=== PATIENT | male | born 1940 | race Caucasian/White ===

== ENCOUNTER 2021-02-28 11:39 | Day surgery (SDC) | payer MEDICARE, BC ==
[~2021-02-28] VITALS: Ht 175.3 cm; Wt 66.5 kg
[2021-02-28] VITALS (7 sets, daily range): BP systolic 108–136; BP diastolic 62–75
[2021-02-28] MEDS ORDERED: normal saline 1000ml 1,000 ML IV SCH (12:05)
[2021-02-28] MEDS ORDERED: ATOR10TA87 PO (12:39)
[2021-02-28] MEDS ORDERED: LISI1TAB51 PO (12:39)
[2021-02-28] MEDS ORDERED: LIDO30CR TOP (12:39)
[2021-02-28 12:41] LABS: BASOPHILS % (AUTO) 0.2 % (0-1); EOSINOPHILS % (AUTO) 0.7 % (0-6); HEMOGLOBIN 12.5 g/dl (14.0-17.9); LYMPHOCYTES # (AUTO) 0.2 X10'3 (1.1-4.8); LYMPHOCYTES % (AUTO) 4.7 % (21-51); MEAN CORPUSCULAR HEMOGLOBIN 32.2 PG (27.0-31.0); MEAN CORPUSCULAR HGB CONC 33.7 g/dL (33.0-36.5); MEAN CORPUSCULAR VOLUME 95.6 FL (78-98); MEAN PLATELET VOLUME 7.3 FL (7.4-10.4); MONOCYTES # (AUTO) 0.3 X10'3 (0-0.9); MONOCYTES % (AUTO) 9.7 % (2-12); NEUTROPHILS # (AUTO) 2.8 X10'3 (1.8-7.7); NEUTROPHILS % (AUTO) 84.7 % (42-75); PLATELET COUNT 107 X10'3 (140-440); RED BLOOD COUNT 3.87 X10'6 (4.70-6.10); RED CELL DISTRIBUTION WIDTH 13.6 % (11.5-14.5); WHITE BLOOD COUNT 3.3 X10'3 (4.5-11.0)
[2021-02-28] MEDS ORDERED: midazolam 1 mg/ML 2ml injection ONE ×2 (12:51→14:42)
[2021-02-28] MEDS ORDERED: glucagon, human recombinant 1mg kit ONE (12:51)
[2021-02-28] MEDS ORDERED: fentaNYL/PF 50MCG/1 ML 2ML syringe ONE ×2 (12:52→14:42)
[2021-02-28] MEDS ORDERED: iohexol 300 MG/1 ML 50ml polymer ONE (14:29)
[2021-02-28] MEDS ORDERED: LIDOcaine 1%/PF 5ML 10 MG/ML VIAL ONE ×4 (14:29→15:05)
[2021-02-28] MEDS ORDERED: atropine 0.1mg/ml 10ml syringe ONE (15:13)
== END 2021-02-28 17:35 | disposition home or self-care (01) ==
LOC: SSTAY O 11:39
PROVIDERS: ATTEND Radiology Vascular & Interventional Radiology
DX: C01 Malignant neoplasm of base of tongue (principal); Z79.899 Other long term (current) drug therapy
CPT/HCPCS: 36415; 49440; 85025; 99152; 99153; C1725; C1769; J0461; J1610; J2250; J3010; J7030; Q9967; B4087